=== PATIENT | male | born 1970 | race Caucasian/White ===

== ENCOUNTER 2020-12-13 09:16 | Emergency (ER) | payer OTHER ==
[2020-12-13] MEDS ORDERED: SUBLIMAZE 100 MCG/2 ML IV ONE (09:23)
[2020-12-13] MEDS ORDERED: Zofran 4 MG/2 ML VIAL ONE (09:23)
[2020-12-13] MEDS ORDERED: Zofran 4 MG/2 ML VIAL IV ONE (09:23)
[2020-12-13] MEDS ORDERED: SUBLIMAZE 100 MCG/2 ML ONE (09:23)
[2020-12-13] MEDS ORDERED: Hydromorphone 1 mg/ml Injection IV ONE ×3 (09:33→13:48)
[2020-12-13] MEDS ORDERED: Hydromorphone 1 mg/ml Injection ONE ×3 (09:33→13:48)
--- NOTE | 2020-12-13 10:04 | ERPHSYRPT ---
- History of Present Illness Source: patient Exam Limitations: no limitations Patient Subjective Stated Complaint: Back pain Triage Nursing Assessment: Patient ambulated back to ED via walker with slow gait. Patient transferred to bed with assist of 1. Patient complains of back pain constant sharp pain 10/10. Patient had recent Laminectomy-microdissection to L3 L4 on Nov 17 and the pain has gotten worse for the past 10 days. Physician History: 50 yo wm s/p L 3-4 laminectomy present w worsening lumbar pain x 2 wks. Pain 10 on scale and worse w movement. He denies fever/dysuria/hematuria/trauma/N/V/D. Timing/Duration: other (2 wks) Method of Injury: other (post-operative) Associated Symptoms: lower back pain, muscle spasms, No fever, No chills, No sweating, No urinary incontinence, No loss of bowel control, No constipation, No nausea, No vomiting, No problems urinating, No light-headedness, No dizziness, No numbness in legs/feet, No weakness, No sensory/motor loss, No tingling in legs/feet Previous symptoms: no prior history Allergies/Adverse Reactions: No Known Drug Allergies Allergy (Unverified 12/13/20 09:36) Home Medications: Famotidine [Pepcid] 1 tab PO DAILY 12/13/20 [History] Hx Influenza Vaccination/Date Given: Yes Hx Pneumococcal Vaccination/Date Given: No Immunizations Up to Date: Yes Travel Risk - International Travel Have you traveled outside of the country in past 3 weeks: No - Coronavirus Screening Are you exhibiting any of the following symptoms?: No Close contact with a COVID-19 positive Pt in past 14-21 Days: No - Review of Systems Constitutional: No Symptoms Eyes: No Symptoms Ears, Nose, & Throat: No Symptoms Respiratory: No Symptoms Cardiac: No Symptoms Abdominal/Gastrointestinal: No Symptoms Genitourinary Symptoms: No Symptoms Musculoskeletal: No Symptoms Skin: No Symptoms Neurological: No Symptoms Psychological: No Symptoms Endocrine: No Symptoms Hematologic/Lymphatic: No Symptoms Immunological/Allergic: No Symptoms - Past Medical History Neurological History: No Pertinent History Cardiac History: No Pertinent History Respiratory History: No Pertinent History Endocrine Medical History: No Pertinent History Musculoskeletal History: Osteoarthritis - Past Surgical History Past Surgical History: Yes Neuro Surgical History: No Pertinent History Cardiac: No Pertinent History Respiratory: No Pertinent History Gastrointestinal: Hernia Repair Genitourinary: No Pertinent History Musculoskeletal: Orthopedic Surgery Other Surgical History: Left ulnar nerve release, left knee replacement, Laminectomy, microdissection L3 L4 - Social History Smoking Status: Never smoker Exposure to second hand smoke: No Drug Use: none Patient Lives Alone: No - Nursing Vital Signs Nursing Vital Signs: Initial Vital Signs Temperature 98.0 F 12/13/20 09:38 Pulse Rate 87 12/13/20 09:38 Respiratory Rate 18 12/13/20 09:38 Blood Pressure 136/92 12/13/20 09:38 O2 Sat by Pulse Oximetry 98 12/13/20 09:38 Pain Scale Pain Intensity 10 - Physical Exam SpO2: 98 - CT Exams Lumbar Spine CT Interpretation: Tele-radiologist Report (Chronic-post operative changes) Ordered Tests: Active Orders 24 hr Category Date Time Status LUMBAR SPINE W/O [CT] Stat Exams 12/13/20 09:23 Taken CBC W DIFF Stat Lab 12/13/20 11:30 Completed CMP Stat Lab 12/13/20 11:46 Completed Medication Summary Discontinued Medications Generic Name Dose Route Start Last Admin Trade Name Gisselle PRN Reason Stop Dose Admin Diazepam 2.5 mg 12/13/20 10:25 12/13/20 10:31 Valium 10 Mg/2 Ml Syringe IV 12/13/20 10:26 2.5 mg STAT ONE Administration Diazepam Confirm 12/13/20 10:30 Valium 10 Mg/2 Ml Syringe Administered 12/13/20 10:31 Dose 10 mg .ROUTE .STK-MED ONE Diazepam 2.5 mg 12/13/20 10:43 12/13/20 10:58 Valium 10 Mg/2 Ml Syringe IV 12/13/20 10:44 2.5 mg STAT ONE Administration Diazepam Confirm 12/13/20 10:56 Valium 10 Mg/2 Ml Syringe Administered 12/13/20 10:57 Dose 10 mg .ROUTE .STK-MED ONE Fentanyl Citrate 100 mcg 12/13/20 09:23 12/13/20 09:23 Sublimaze 100 Mcg/2 Ml IV 12/13/20 09:24 100 mcg STAT ONE Administration Fentanyl Citrate Confirm 12/13/20 09:23 Sublimaze 100 Mcg/2 Ml Administered 12/13/20 09:24 Dose 100 mcg .ROUTE .STK-MED ONE Hydromorphone HCl 2 mg 12/13/20 09:33 12/13/20 09:45 Hydromorphone 1 Mg/Ml Injection IV 12/13/20 09:34 2 mg STAT ONE Administration Hydromorphone HCl Confirm 12/13/20 09:33 Hydromorphone 1 Mg/Ml Injection Administered 12/13/20 09:34 Dose 2 mg .ROUTE .STK-MED ONE Hydromorphone HCl 1 mg 12/13/20 12:09 12/13/20 12:12 Hydromorphone 1 Mg/Ml Injection IV 12/13/20 12:10 1 mg STAT ONE Administration Hydromorphone HCl Confirm 12/13/20 12:11 Hydromorphone 1 Mg/Ml Injection Administered 12/13/20 12:12 Dose 1 mg .ROUTE .STK-MED ONE Hydromorphone HCl 1 mg 12/13/20 13:48 12/13/20 13:54 Hydromorphone 1 Mg/Ml Injection IV 12/13/20 13:49 1 mg STAT ONE Administration Hydromorphone HCl Confirm 12/13/20 13:48 Hydromorphone 1 Mg/Ml Injection Administered 12/13/20 13:49 Dose 1 mg .ROUTE .STK-MED ONE Sodium Chloride 1,000 mls @ 999 mls/hr 12/13/20 11:46 12/13/20 12:49 Sodium Chloride 0.9% 1000 Ml IV 12/13/20 12:46 Infused .Q1H1M STA Infusion Sodium Chloride Confirm 12/13/20 11:48 Sodium Chloride 0.9% 1000 Ml Administered 12/13/20 11:49 Dose 1,000 mls @ ud .ROUTE .STK-MED ONE Ketorolac Tromethamine 30 mg 12/13/20 13:22 12/13/20 13:24 Toradol 30 Mg Injection IV 12/13/20 13:23 30 mg STAT ONE Administration Ketorolac Tromethamine Confirm 12/13/20 13:22 Toradol 30 Mg Injection Administered 12/13/20 13:23 Dose 30 mg .ROUTE .STK-MED ONE Ondansetron HCl 4 mg 12/13/20 09:23 12/13/20 09:45 Zofran 4 Mg/2 Ml Vial IV 12/13/20 09:24 4 mg STAT ONE Administration Ondansetron HCl Confirm 12/13/20 09:23 Zofran 4 Mg/2 Ml Vial Administered 12/13/20 09:24 Dose 4 mg .ROUTE .STK-MED ONE Lab/Rad Data: Laboratory Result Diagrams 12/13/20 11:30 12/13/20 11:46 Laboratory Results 12/13/20 12/13/20 Range/Units 11:46 11:30 WBC 10.6 H (4.0-10.5) K/mm3 RBC 5.16 (4.1-5.6) M/mm3 Hgb 16.4 (12.5-18.0) gm/dl Hct 51.3 H (42-50) % MCV 99.4 (78-100) fl MCH 31.8 (26-32) pg MCHC 32.0 (32-36) g/dl RDW 13.0 (11.5-14.0) % Plt Count 322 (150-450) K/mm3 MPV 9.5 (7.5-11.0) fl Gran % 54.6 (36.0-66.0) % Eos # (Auto) 0.49 (0-0.5) Absolute Lymphs (auto) 3.03 (1.0-4.6) Absolute Monos (auto) 1.27 (0.0-1.3) Lymphocytes % 28.5 (24.0-44.0) % Monocytes % 11.9 (0.0-12.0) % Eosinophils % 4.6 (0.00-5.0) % Basophils % 0.4 (0.0-0.4) % Absolute Granulocytes 5.81 (1.4-6.9) Basophils # 0.04 (0-0.4) Sodium 136 L (137-145) mmol/L Potassium 4.3 (3.5-5.1) mmol/L Chloride 97 L (98-107) mmol/L Carbon Dioxide 29 (22-30) mmol/L Anion Gap 13.6 (5-15) MEQ/L BUN 17 (9-20) mg/dL Creatinine 0.82 (0.66-1.25) mg/dL Estimated GFR > 60.0 ML/MIN Glucose 83 (74-106) mg/dL Calcium 9.8 (8.4-10.2) mg/dL Total Bilirubin 2.00 H (0.2-1.3) mg/dL AST 46 (17-59) U/L ALT 47 (0-50) U/L Alkaline Phosphatase 64 (38-126) U/L Serum Total Protein 8.1 (6.3-8.2) g/dL Albumin 4.6 (3.5-5.0) g/dL - Progress Progress: pain not gone completely Progress Note: 12/13/20 12:19 100umg IV Fentanyl/4mg IV Zofran wo relief 1mg IV Dilaudid x2 w mild relief 2.5mg IV Valium x2 1mg IV dilaudid 1L NS bolus Pt accepted by Dr. Real from [facility] transferred to [facility] 12/13/20 14:17 30 mg IV Toradol w mild relief 1mg IV Dilaudid after pt placed on stretcher by [facility] Pt stable when care assumed by [facility] - Departure Departure Disposition: Transfer Clinical Impression: post-op Lumbar pain Condition: Stable Critical Care Time: No [facility] - Instructions: Low Back Pain (DC)
[2020-12-13] MEDS ORDERED: VALIUM 10 MG/2 ML SYRINGE IV ONE ×2 (10:25→10:43)
[2020-12-13] MEDS ORDERED: VALIUM 10 MG/2 ML SYRINGE ONE ×2 (10:30→10:56)
[2020-12-13] MEDS ORDERED: Sodium Chloride 0.9% 1000 ML 1,000 ML IV STA (11:46)
[2020-12-13] MEDS ORDERED: Sodium Chloride 0.9% 1000 ML 1,000 ML ONE (11:48)
[2020-12-13 11:59] LABS: Absolute Neutrophil Ct (ANC) 5.81 (1.4-6.9); BASOPHIL % 0.4 % (0.0-0.4); Basophil (Absolute #) 0.04 (0-0.4); Eosinophil % 4.6 % (0.00-5.0); Eosinophil (Absolute #) 0.49 (0-0.5); Hematocrit 51.3 % (42-50); Hemoglobin 16.4 gm/dl (12.5-18.0); Lymphocyte (Absolute #) 3.03 (1.0-4.6); Lymphocytes % 28.5 % (24.0-44.0); Mean Cell Volume 99.4 fl (78-100); Mean Corpuscular Hemoglobin 31.8 pg (26-32); Mean Platelet Volume 9.5 fl (7.5-11.0); Monocyte (Absolute #) 1.27 (0.0-1.3); Monocytes % 11.9 % (0.0-12.0); Neutrophil % 54.6 % (36.0-66.0); Platelet Count 322 K/mm3 (150-450); Red Blood Count 5.16 M/mm3 (4.1-5.6); White Blood Count 10.6 K/mm3 (4.0-10.5)
[2020-12-13 12:00] LABS: ALBUMIN 4.6 g/dL (3.5-5.0); ALKALINE PHOSPHATASE 64 U/L (38-126); ANION GAP 13.6 MEQ/L (5-15); BLOOD UREA NITROGEN 17 mg/dL (9-20); CHLORIDE 97 mmol/L (98-107); Calcium 9.8 mg/dL (8.4-10.2); Carbon Dioxide 29 mmol/L (22-30); Creatinine 1 0.82 mg/dL (0.66-1.25); EST GLOMERULAR FILTRATION RATE > 60.0 ML/MIN; Glucose 83 mg/dL (74-106); Potassium 4.3 mmol/L (3.5-5.1); SGOT/AST 46 U/L (17-59); SGPT/ALT 47 U/L (0-50); SODIUM 136 mmol/L (137-145); Total Protein 8.1 g/dL (6.3-8.2)
[2020-12-13 12:04] VITALS: BP 136/78
[2020-12-13] MEDS ORDERED: TORAdol 30 mg Injection ONE (13:22)
[2020-12-13] MEDS ORDERED: TORAdol 30 mg Injection IV ONE (13:22)
[2020-12-13 13:36] VITALS: PULSE 86
[2020-12-13 14:19] VITALS: O2SAT 98
--- NOTE | 2020-12-13 15:55 | XRAY ---
Indication: Low back pain. Status post L3-L4 laminectomy. Multiple contiguous axial images obtained through the lumbar spine without contrast. Sagittal and coronal reformatted images obtained. Comparison: None Axial images demonstrates L2-S1 broad-based disc bulge, greatest L4-L5 level. Also tiny L3-L5 subcortical cysts and minimal endplate spurring. L3-L4 laminectomy defect. No obvious large disc herniation or spinal canal stenosis. Facets are symmetric. Sagittal and coronal reformatted images demonstrates normal lumbar alignment with mild L3-L5 disc space narrowing. No acute compression fracture or subluxation. Visualized noncontrasted soft tissues demonstrates minimal aortic calcifications. Impression: L2-S1 broad-based disc bulge and L3-L4 laminectomy. Outpatient MRI lumbar spine with contrast exam may yield further information. Comment: Preliminary interpretation was made by [facility]. No critical discrepancy.
== END 2020-12-13 14:05 | disposition short-term general hospital (02) ==
LOC: ED 09:16
DX: G89.18 Other acute postprocedural pain (principal); M54.5 Low back pain
CPT/HCPCS: 36415; 72131; 80053; 85025; 96360; 96374; 96375; 96376; 99285; J1170; J1885; J2405; J3010; J3360

== ENCOUNTER 2022-10-29 06:04 | Day surgery (SDC) | payer OTHER ==
[2022-10-29] MEDS ORDERED: Lactated Ringers 1,000 ML IV SCH (06:30)
[2022-10-29] MEDS ORDERED: DIPRIVAN 200 MG/20 ML IV ONE ×3 (07:13→07:40)
[2022-10-29] MEDS ORDERED: Xylocaine-Mpf 2% 5 Ml Vial ONE (07:13)
[2022-10-29] MEDS ORDERED: Zofran 4 MG/2 ML VIAL ONE (08:05)
[2022-10-29 08:52] VITALS: O2SAT 99
[2022-10-29 09:00] VITALS: BP 158/102; PULSE 85
--- NOTE | 2022-10-29 09:45 | OP ---
SURGERY DATE/TIME: 10/29/2022 0718 PREOPERATIVE DIAGNOSIS: Screening exam. POSTOPERATIVE DIAGNOSIS: Small polyps in the transverse colon. PROCEDURE: Colonoscopy with cold forceps biopsy to polyps. SURGEON: Dr. Jeffers. ANESTHESIA: MAC. Medications given by anesthesia department. HISTORY: The patient is a 52-year-old white male patient presenting now for his first screening colonoscopy. He was appraised of the risks of the procedure including the risk of perforation, phlebitis, untoward reaction to medication, bleeding and missed lesions. The patient verbalized his understanding and desired to have the procedure performed. DESCRIPTION OF PROCEDURE: The patient was given the medications by the anesthesia department. He had continuous pulse oximetry, ECG monitoring, intermittent blood pressure monitoring during the examination. He was placed in the left lateral decubitus position. A digital rectal examination was performed and revealed normal anal sphincter tone, no masses and a normal prostate. The flexible Olympus pediatric colonoscope was used to intubate the rectum. A view of the colon was developed sequentially to the cecum. Upon insertion and withdrawal was noted small polyps in the transverse colon these were biopsied using cold forceps biopsies to destroy the lesions and obtain tissue for pathologic evaluation. Upon insertion and withdrawal, including a retroflex view in the rectum, no other mucosal lesions being encountered the scope was removed from the patient who tolerated the procedure well and was sent back to OP recovery in good condition. The prep was noted to be fair.
== END 2022-10-29 09:03 | disposition home or self-care (01) ==
LOC: SDC 06:04
PROVIDERS: ATTEND Family Medicine
DX: Z12.11 Encounter for screening for malignant neoplasm of colon (principal); D12.3 Benign neoplasm of transverse colon
CPT/HCPCS: J2405; J2704